=== PATIENT | male | born 1970 | race Caucasian/White ===

== ENCOUNTER 2016-10-10 13:00 | Inpatient (IN) | payer OTHER ==
[~2016-10-10] VITALS: Ht 175.3 cm; Wt 114.8 kg
--- NOTE | ~2016-10-10 | PA ---
Unit #: [id number] #: [id number] Patient: TRICIA BASS [id number] [facility] [address] [place] [address] [id number] MR#: [id number] NAME: TRICIA BASS. ROOM: P125 Age: 46 Sex: M Admission Date: 10/10/2016 : 1970 Date of Assessment: 10/11/2016 Attending Physician: Gilberto Deshpande M.D. Admitting Physician: Gilberto Dehspande M.D. Primary Care Physician: Demarcus Snyder M.D. PSYCHIATRIC ASSESSMENT IDENTIFYING INFORMATION The patient is a 46-year-old white male admitted with positive suicidal ideation, paranoia, and auditory hallucinations. CHIEF COMPLAINT None given. INFORMANT Patient, reliability is good. HISTORY OF PRESENT ILLNESS The patient is a 46-year-old white male who was admitted to the [address] [place] [address] Unit with increasing paranoia, depressed mood, and suicidal ideation. The patient recently lost his job and cites this as the most prominent recent stressor. The patient reports that he has been paranoid that others are speaking about him. He denies prior inpatient psychiatric treatment but has been prescribed Effexor but admits that his compliance with these medications has been less than optimal. The patient continues to endorse positive suicidal ideation when seen today. He denies any recent changes in sleep or appetite. He lives alone and is never . PAST PSYCHIATRIC HISTORY As above. PAST MEDICAL HISTORY The patient suffers from diabetes mellitus, hypertension, GERD, asthma, and vitamin D deficiency. MEDICATIONS Promethazine, vitamin D, Ventolin HFA, Venlafaxine, trazodone, Spiriva, ranitidine, Omeprazole, lisinopril, Januvia, glyburide, Colace, baclofen, aspirin, Accu-Chek. FAMILY HISTORY None. The patient's brother is with chronic paranoid schizophrenia and is currently incarcerated at [facility] after having shot and killed 2 [facility] deputies. SOCIAL HISTORY The patient lives alone. 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 He denies use of alcohol, tobacco, and street drugs. He has reported history of alcohol dependence. Unit #: [id number] #: [id number] Patient: TRICIA BASS MENTAL STATUS EXAMINATION Examination at this time reveals the patient to be a well-developed well-nourished white male appearing stated age. He is in no apparent physical distress at the time of examination. He is awake, alert, and oriented in all spheres. His mood is mildly dysphoric, his affect constricted. Speech is generally well coherent. There are no gross deficits in memory or cognition noted. Intelligence is judged to be in the average range based on fund of knowledge. The patient is cooperative throughout the interview. He continues to endorse positive suicidal ideation. He denies homicidal ideation. He reports positive paranoid and delusional thinking as well as auditory hallucinations. His judgment and insight appear to be intact. ASSETS AND LIABILITIES The patient's assets: Motivation for change. Liabilities: Lack of resources. DIAGNOSTIC IMPRESSION 1. Major depressive disorder, severe, recurrent, with psychotic features. 2. Gastroesophageal reflux disease. 3. Hypertension. 4. Diabetes mellitus. 5. Asthma. TREATMENT PLAN The patient remains hospitalized for safety and stabilization. We will continue previously prescribed medications, and I have encouraged the patient to more consistently comply with Effexor. Abilify 2 mg q.a.m. will be initiated to augment the patient's antidepressant effect and address psychotic symptoms. ESTIMATED LENGTH OF STAY 5 to 7 days. Dictated by... Gilberto Deshpande M.D. AYE/ortega TD: 10/11/2016 13:54 JOB #: [id number] PSYCHIATRIC ASSESSMENT Page 1 of 1 X Gilberto Deshpande MD X PSYCHIATRIC ASSESSMENT
--- NOTE | ~2016-10-10 | DS ---
Unit #: [id number] #: [id number] Patient: TRICIA BASS [id number] [place] [address] [id number] MR#: [id number] NAME: TRICIA BASS. ROOM: [facility] Age: 46 Sex: M Admission Date: 10/10/2016 : 1970 Discharge Date: 10/17/2016 Attending Physician: Gilberto Deshpande M.D. Primary Care Physician: Demarcus Snyder M.D. DISCHARGE SUMMARY REASON FOR ADMISSION The patient is a 46-year-old single white male, admitted to the [address] [place] [address] unit with increasing depression, suicidal ideation, and auditory hallucinations. HOSPITAL COURSE The patient was admitted to the [address] [place] [address] and placed on suicide precautions. The Effexor was increased to 150 mg of the XR formulation and Abilify was added with dosage titration to 5 mg daily. Trazodone was increased to 200 mg at bedtime to address the patient's complaints of insomnia. The patient showed rapid response to these medication changes, and by 10/17/2016, was in bright spirits. He denied psychotic symptoms or suicidal ideation on that date and discharge was ordered. FINAL DIAGNOSES Major depressive disorder, severe, recurrent, with psychotic features, resolved; diabetes mellitus; hypertension; gastroesophageal reflux disease; asthma; and vitamin D deficiency. DISPOSITION ON DISCHARGE The patient is discharged on the following medications: Promethazine 25 mg t.i.d. p.r.n. nausea and vomiting, vitamin D3 50,000 units weekly for vitamin D deficiency, Ventolin HFA 90 mcg b.i.d. p.r.n. shortness of air, venlafaxine XR 150 mg daily for depression, trazodone 200 mg at h.s. p.r.n. insomnia, aspirin 81 mg daily for anticoagulation, baclofen 10 mg nightly for muscle relaxation, Colace 100 mg daily for constipation, glyburide 6 mg daily for diabetic management, Januvia 100 mg daily for diabetic management, lisinopril 20 mg daily for hypertension, omeprazole 20 mg daily for GERD, ranitidine 150 mg at h.s. for GERD, Spriva 2.5 mg b.i.d. for shortness of air, and Abilify 5 mg q.a.m. for depression and psychosis. DISCHARGE INSTRUCTIONS No dietary or physical restrictions were placed on the patient at the time of discharge. FOLLOWUP He will follow up through the auspices of community mental health resources in the [facility]. PROGNOSIS His prognosis is considered fair. Unit #: [id number] #: [id number] Patient: TRICIA BASS Dictated by... Gilberto Deshpande M.D. CB/tonio TD: 10/17/2016 14:16 JOB #: [id number] DISCHARGE SUMMARY Page 1 of 1 X Gilberto Deshpande MD X DISCHARGE SUMMARY
--- NOTE | ~2016-10-10 | PN ---
Unit #: [id number] #: [id number] Patient: TRICIA BASS [id number] [facility] [address] [place] [address] [id number] I MR#: [id number] NAME: TRICIA BASS. ROOM: P125 Age: 46 Sex: M Admission Date: 10/10/2016 : 1970 Attending Physician: Gilberto Deshpande M.D. Admitting Physician: Gilberto Deshpande M.D. Primary Care Physician: Alejandra Chavez PROGRESS NOTES DATE 10/12/2016 DISCUSSION The patient is abed, seclusive to room. He remains dysphoric and continues to endorse positive suicidal ideation. He has tolerating initiation of Abilify without complaint. We are attempting to transfer the [facility] to [facility] for more appropriate therapeutic milieu. Dictated by... Gilberto Deshpande M.D. CB/ortega TD: 10/12/2016 14:32 JOB #: [id number] [facility] PROGRESS NOTES Page 1 of 1 X Gilberto Deshpande MD X PROGRESS NOTE
--- NOTE | ~2016-10-10 | PN ---
Unit #: [id number] #: [id number] Patient: TRICIA BASS [id number] [facility] [address] [place] [address] [id number] MR#: [id number] NAME: TRICIA BASS. ROOM: P125 Age: 46 Sex: M Admission Date: 10/10/2016 : 1970 Attending Physician: Gilberto Deshpande M.D. Admitting Physician: Gilberto Deshpande M.D. Primary Care Physician: Alejandra Chavez PROGRESS NOTES DATE 10/15/2016 DISCUSSION The patient continues to report reduction in suicidal ideation complains of poor sleep last evening. He states that he has been "on trazodone 100 for years" and reports that it is now (1)____ in addressing his sleep issues. I will switch the patient's sleep medication to doxepin 50 mg at bedtime. Should the patient continue progress at this rate he should be ready for discharge before in the next couple of days. Dictated by... Gilberto Deshpande M.D. CB/whit TD: 10/15/2016 22:58 JOB #: [id number] [facility] PROGRESS NOTES Page 1 of 1 X Gilberto Deshpande MD X PROGRESS NOTE
--- NOTE | ~2016-10-10 | PN ---
Unit #: [id number] #: [id number] Patient: TRICIA BASS [id number] [facility] [address] [place] [address] [id number] MR#: [id number] NAME: TRICIA BASS. ROOM: P125 Age: 46 Sex: M Admission Date: 10/10/2016 : 1970 Attending Physician: Gilberto Deshpande M.D. Admitting Physician: Gilberto Deshpande M.D. Primary Care Physician: Alejandra Chavez PROGRESS NOTES DATE 10/13/2016 DISCUSSION The patient remains seclusive to room and continues to complain of paranoid thinking and suicidal ideation. I will increase the patient's Abilify dose to 5 mg daily today and I have spoken with the patient regarding realistic expectations of inpatient care. Dictated by... Gilberto Deshpande M.D. CB/carissa TD: 10/13/2016 15:04 JOB #: [id number] [facility] PROGRESS NOTES Page 1 of 1 X Gilberto Deshpande MD X PROGRESS NOTE
--- NOTE | ~2016-10-10 | HP ---
Unit #: [id number] #: [id number] Patient: TRICIA BASS [id number] [place] [address] [id number] I MR#: [id number] NAME: TRICIA BASS. ROOM: P125 Age: 46 Sex: M Admission Date: 10/10/2016 : 1970 Attending Physician: Gilberto Deshpande M.D. Admitting Physician: Gilberto Deshpande M.D. Primary Care Physician: Demarcus Snyder M.D. HISTORY AND PHYSICAL HISTORY OF PRESENT ILLNESS Tricia is a 46 year old admitted to [address] [place] [address] with depression, increased anxiety and after verbalizing wanting to hurt himself. PAST MEDICAL HISTORY 1. High blood pressure. 2. Diabetes mellitus. 3. Hyperlipidemia. PAST SURGICAL HISTORY Nothing reported. ALLERGIES No known drug allergies. SOCIAL HISTORY Smokes 1 pack per day. Denies alcohol and illicit drug use. FAMILY HISTORY Medically noncontributory. REVIEW OF SYSTEMS CONSTITUTIONAL: No fever or chills. HEENT: Denies any sore throat, ear pain or runny nose. CARDIOVASCULAR: Denies chest pain, irregular heart rhythm or palpitations. CHEST: Denies shortness of breath or cough. No hemoptysis. GASTROINTESTINAL: Denies nausea, vomiting, diarrhea or chronic constipation. ENDOCRINE: Denies history of increased thirst or urination. No recent significant weight loss or gain. GENITOURINARY: Denies dysuria, frequency, or hematuria. SKIN: Denies any rashes. HEMATOLOGIC: Denies history of increased bleeding or bruising. MUSCULOSKELETAL: Denies any hot, swollen joints. No generalized muscle pain. NEUROLOGIC: Denies problems with vision or speech. No frequent, severe headaches. No numbness, tingling or weakness in any extremities. Denies loss of bladder or bowel control. CURRENT MEDICATIONS 1. Abilify 2 mg q.a.m. 2. Januvia 100 mg daily. 3. Protonix 40 mg daily. Unit #: [id number] #: [id number] Patient: TRICIA BASS 4. Pepcid 20 mg q.h.s. 5. Lioresal 10 mg q.h.s. 6. Desyrel 100 mg q.h.s. 7. Milk of Magnesia p.r.n. 8. Maalox p.r.n. 9. Tylenol p.r.n. 10. Vitamin D 50,000 units q. week. 11. Effexor XR 150 mg daily. 12. Spiriva 18 mcg daily. 13. Zestril 20 mg daily. 14. Glynase 3 mg daily. 15. Colace 100 mg daily. 16. Aspirin 81 mg daily. PHYSICAL EXAMINATION GENERAL: Alert, well-nourished, in no apparent distress. VITAL SIGNS: Blood pressure 124/84, heart rate 76, respirations 16, temperature 98.6. WEIGHT: 253. HEIGHT: 5 feet 9 inches. SKIN: Warm and dry without rash or lesion. HEENT: Normocephalic. TMs not viewed. Oral and nasal passages clear. Conjunctivae clear. PERRLA. EOMs intact. NECK: Supple without lymphadenopathy or thyromegaly. HEART: Regular rate and rhythm without murmur. LUNGS: Clear. ABDOMEN: Soft, nontender. : Not done. EXTREMITIES: No evidence of cyanosis, clubbing or edema. Moves all without focal deficit. NEUROLOGICAL: Grossly within normal limits. Cranial Nerves: II: Visual bennett are intact. III, IV AND : Extraocular movements are intact. Pupils are equal, round and reactive to light. V: Facial sensation is grossly normal. VII: Facial movements and expression are normal. VIII: Auditory acuity grossly intact. IX, X: Uvula is midline. Phonation is normal. XI: Patient shrugs shoulders and turns head normally. XII: Tongue protrudes in the midline. Sensory and Motor Function: Sensory and motor sensation is grossly normal. Motor: moves all extremities well. Coordination: Gait is normal. Deep Tendon Reflexes: Intact. IMPRESSION Psychiatric admission. RECOMMENDATIONS PSYCHIATRIC: Per psychiatrist. MEDICAL: See no contraindication to participate in facility's activities. MEDICAL PROGNOSIS Good. MEDICAL CONDITION Stable. Unit #: [id number] #: [id number] Patient: TRICIA BASS Dictated by... Jada Olmedo P.A.-C. for Alejandra Toussaint/carissa TD: 10/11/2016 15:21 JOB #: [id number] HISTORY AND PHYSICAL Page 1 of 1 X Jada Olmedo HISTORY AND PHYSICAL
--- NOTE | ~2016-10-10 | PN ---
Unit #: [id number] #: [id number] Patient: TRICIA BASS [id number] [facility] [address] [place] [address] [id number] MR#: [id number] NAME: TRICIA BASS. ROOM: P125 Age: 46 Sex: M Admission Date: 10/10/2016 : 1970 Attending Physician: Gilberto Deshpande M.D. Admitting Physician: Gilberto Deshpande M.D. Primary Care Physician: Alejandra Chavez PROGRESS NOTES DATE 10/14/2016 DISCUSSION The patient is reporting that he is feeling "a little better today." He seems to have done well with the increased dose of Abilify. Should he sustain progress and continue progressing as he is currently, i.e., reporting reduction in paranoid thinking and suicidality, discharge could take place as early as in the week. However, we will have to watch closely regarding the patient's safety, particularly given the degree of psychosis evident at the time of admission. Dictated by... Gilberto Deshpande M.D. CB/ortega TD: 10/14/2016 12:28 JOB #: [id number] [facility] PROGRESS NOTES Page 1 of 1 X Gilberto Deshpande MD X PROGRESS NOTE
--- NOTE | ~2016-10-10 | PN ---
Unit #: [id number] #: [id number] Patient: TRICIA BASS [id number] [facility] [address] [place] [address] [id number] MR#: [id number] NAME: TRICIA BASS. ROOM: P125 Age: 46 Sex: M Admission Date: 10/10/2016 : 1970 Attending Physician: Gilberto Deshpande M.D. Admitting Physician: Gilberto Deshpande M.D. Primary Care Physician: Alejandra Chavez PROGRESS NOTES DATE 10/16/2016 DISCUSSION The patient continues to complain of poor sleep and does not report positive response to Doxepin. I will discontinue this medication and go back to Trazodone increasing the patient's dose to 200 mg at bedtime. Otherwise he is reporting some recurrence of suicidal thinking when seen today. Dictated by... Gilberto Deshpande M.D. CB/whit TD: 10/17/2016 03:14 JOB #: [id number] [facility] PROGRESS NOTES Page 1 of 1 X Gilberto Deshpande MD X PROGRESS NOTE
[~2016-10-10 13:00] MED LIST: DESYREL100 MG PO; FLUOXETINE HCL20 M1 PO
[2016-10-11 09:56] LABS: BASOPHIL% 0.8 % (0-2.5); EOSINOPHIL# 0.1 X10e3 (0-0.7); HEMATOCRIT 41.5 % (38.0-50.0); HEMOGLOBIN 14.3 gm/dL (13.0-16.0); LYMPHOCYTE# 1.4 X10e3 (1.0-3.5); LYMPHOCYTE% 26.6 % (17.0-45.0); MEAN CELL VOLUME 81.2 FL (83-96); MEAN CORPUSCULAR HGB CONC 34.5 g/dL (30-36); MEAN PLATELET VOLUME 8.4 FL (6.5-11.5); MONOCYTE# 0.4 X10e3 (0-1.0); MONOCYTE% 7.6 % (3.0-12.0); NEUTROPHIL# 3.4 X10e3 (1.5-7.1); PLATELET COUNT 122 X10e3 (140-420); RED BLOOD COUNT 5.11 X10e (3.90-5.60); RED CELL DISTRIBUTION WIDTH 16.3 % (11.0-15.5); WHITE BLOOD COUNT 5.4 X10e3 (4.0-10.5)
[2016-10-11 10:01] LABS: DIFF IND NO
[2016-10-11 10:43] LABS: ALBUMIN SERUM 3.7 g/dL (3.5-5.0); BILIRUBIN,TOTAL 0.6 mg/dL (0.2-2.0); BUN/CREATININE RATIO 8.18; CREATININE SERUM 1.1 mg/dL (0.6-1.4); POTASSIUM 3.9 mmol/L (3.5-5.1)
[2016-10-16 10:40] LABS: URINE APPEARANCE TURBID; URINE BILIRUBIN NEG (NEG); URINE BLOOD 2+ (NEG); URINE COLOR YELLOW; URINE GLUCOSE NEG (NEG); URINE KETONE NEG (NEG); URINE LEUKOCYTE ESTERASE 3+ (NEG); URINE NITRATE NEG (NEG); URINE PH 6.5 (5-8); URINE PROTEIN 1+ (NEG); URINE SPECIFIC GRAVITY 1.013 (1.003-1.035); URINE UROBILINOGEN 0.2 MG/DL (NEG)
[2016-10-16 10:44] LABS: URINE BACTERIA AUWI NEG (NEGATIVE); URINE SQUAMOUS EPITHELIAL CELL MOD /[HPF]; UWBCS1 AUWI INNUM (0-5)
[2016-10-16 11:21] LABS: URINE YEAST PRESENT
[2016-10-16 11:22] LABS: AMPHETAMINE NEG (NEG); BARBITURATES NEG (NEG); BENZODIAZEPINES NEG (NEG); COCAINE NEG (NEG); MARIJUANA NEG (NEG); OPIATES NEG (NEG); TRICYCLIC ANTIDEPRESSANTS POS (NEG); U METHADONE NEG (NEG)
== END 2016-10-17 15:02 | disposition home or self-care (01) | DRG 885 ==
LOC: P1S 16:22
PROVIDERS: Specialist
DX: F33.3 Major depressive disorder, recurrent, severe with psychotic symptoms (principal); E11.8 Type 2 diabetes mellitus with unspecified complications; K21.9 Gastro-esophageal reflux disease without esophagitis; I10 Essential (primary) hypertension; J45.909 Unspecified asthma, uncomplicated; E78.5 Hyperlipidemia, unspecified; F17.210 Nicotine dependence, cigarettes, uncomplicated
CPT/HCPCS: 80053; 80307; 81003; 82947; 85025